=== PATIENT | female | born 2000 | race Caucasian/White ===

== ENCOUNTER 2020-07-31 02:30 | Observation (INO) | payer OTHER, SELFPAY ==
[~2020-07-31] VITALS: Ht 170.2 cm; Wt 105.7 kg
[2020-07-31 02:30] VITALS: BP 120/71
[2020-07-31] MEDS ORDERED: NACL 0.9% 1,000 ML IV SCH (02:40)
[2020-07-31] MEDS ORDERED: cefTRIAXone 1,000 MG in DEXT 5% MINI-BAG PLUS 50 ML IV ONE (02:40)
--- NOTE | 2020-07-31 02:55 | NUR ---
21 YO F CHACHA FROM HOME WITH C/C OF [facility]OPE. PT STATED SHE WENT TO THE AND SYNCOPED FOR A FEW MINS BEFORE FAMILY CAME IN. PT DENIES HITTING HEAD OR ANY INJURIES. PT STATED SHE TESTED POS FOR COVID ON 07/25. PT STATES SHE HAS HAD DIZZINESS, N/D, COUGH AND FEVER X3DAYS. STATED FEVER SUBSIDED ON 07/29. DENIES BLOOD IN STOOL. PT DENIED SOB, CHILLS, AND VOMITTING. PT PLACED IN GOWN, CLINICAL PROFESSOR AND PULSE OX. PT PLACED ON O2 FOR DESAT TO 90%. PT IS IN STABLE CONDITION. PT STATED SHE HAS BEEN TAKING IBUPROFEN, TYLENOL, AND MUSINEX WITH SOME RELIEF. HX: DENIES RX: DENIES NKA Addendum: 07/31/20 at 0344 by Zenter 1O YO F CHACHA FROM HOME WITH C/C OF [facility]NCOPE. PT STATED SHE WENT TO THE AND SYNCOPED FOR A FEW MINS BEFORE FAMILY CAME IN. PT DENIES HITTING HEAD OR ANY INJURIES. PT STATED SHE TESTED POS FOR COVID ON 07/25. PT STATES SHE HAS HAD DIZZINESS, N/D, COUGH AND FEVER X3DAYS. STATED FEVER SUBSIDED ON 07/29. DENIES BLOOD IN STOOL. PT DENIED SOB, CHILLS, AND VOMITTING. PT PLACED IN GOWN, CLINICAL PROFESSOR AND PULSE OX. PT PLACED ON O2 FOR DESAT TO 90%. PT IS IN STABLE CONDITION. PT STATED SHE HAS BEEN TAKING IBUPROFEN, TYLENOL, AND MUSINEX WITH SOME RELIEF. HX: DENIES RX: DENIES NKA
[2020-07-31] MEDS ORDERED: cefTRIAXone 1,000 MG VIAL ONE ×2 (02:56→11:56)
--- NOTE | 2020-07-31 03:00 | NUR ---
PROVIDED PT WITH A BEDSIDE COMMODE IN ORDER TO OBTAIN A URINE SPECIMEN COLLECTION
--- NOTE | 2020-07-31 03:08 | NUR ---
MAGDALENA MOSS AT BEDSIDE FOR MEDICAL EVALUATION
[2020-07-31 03:12] LABS: BASOPHILS % (AUTO) 0.4 % (0.0-2.0); EOSINOPHILS % (AUTO) 0.1 % (0.0-4.0); HEMATOCRIT 38.6 % (36-48); LYMPHOCYTES # (AUTO) 1.3 K/uL (2.5-16.5); LYMPHOCYTES % (AUTO) 28.9 % (20.5-51.1); MEAN CORPUSCULAR HEMOGLOBIN 29 pg (27-31); MEAN CORPUSCULAR HGB CONC 34 g/dL (33-37); MONOCYTES # (AUTO) 0.4 K/uL (0.8-1.0); MONOCYTES % (AUTO) 8.5 % (1.7-9.3); NEUTROPHILS # (AUTO) 2.9 K/uL (1.8-7.7); NEUTROPHILS % (AUTO) 62.1 % (42.2-75.2); PLATELET COUNT (AUTO) 176 K/uL (140-450); RED BLOOD CELL COUNT(AUTO) 4.55 MIL/uL (4.20-5.40); RED CELL DISTRIBUTION WIDTH 13.8 % (11.6-13.7); WHITE BLOOD COUNT (AUTO) 4.6 K/uL (4.5-11.0)
--- NOTE | 2020-07-31 03:12 | NUR ---
XRAY AT BEDSIDE
[2020-07-31] MEDS ORDERED: KETOROLAC 30 MG/ML VIAL IVP ONE (03:15)
--- NOTE | 2020-07-31 03:23 | NUR ---
COLLECTED COVID SWAB-NICHOL[facility] AND WALKED OVER TO LAB
[2020-07-31 03:29] LABS: ALBUMIN 4.2 g/dL (3.4-5.0); ANION GAP 12.7 (8-16); CARBON DIOXIDE 26.8 mmol/L (21-32); POTASSIUM 3.5 mmol/L (3.5-5.1); TOTAL BILIRUBIN 0.4 mg/dL (0.0-1.0)
--- NOTE | 2020-07-31 03:35 | NUR ---
URINE COLLECTED AND TAKEN TO LAB.
[2020-07-31 03:44] LABS: APPEARANCE,URINE SL CLOUDY (CLEAR); BILIRUBIN,URINE 1+ (NEGATIVE); BLOOD, URINE NEGATIVE (NEGATIVE); COLOR,URINE YELLOW (YELLOW); LEUKOCYTE ESTERASE ,URINE NEGATIVE (NEGATIVE); NITRITE, URINE NEGATIVE (NEGATIVE); UGLUCOSE NEGATIVE (NEGATIVE)
--- NOTE | 2020-07-31 03:52 | NUR ---
LAB CALLED WITH POSITIVE COVID TEST RESULT
--- NOTE | 2020-07-31 03:55 | NUR ---
PT'S MOTHER CALLED FOR AN UPDATE. PT STATED IT WAS OK TO RELEASE INFO TO HER MOTHER. ASKED FOR UPDATES THROUGHOUT STAY. KRYSTAL [phone]
[2020-07-31 04:10] LABS: RBC,URINE 0-5 /HPF (0-5)
[2020-07-31 04:12] LABS: COARSE GRANULAR CASTS,URINE 0-10 /LPF (None Seen)
--- NOTE | 2020-07-31 04:19 | NUR ---
PT IS IN STABLE CONDITION, RESTING. EQUAL RISE AND FALL OF CHEST WALL, UNLABORED BREATHING. 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 PT NEEDS MET AT THIS TIME.
--- NOTE | 2020-07-31 06:05 | NUR ---
PT IS SLEEPING. IN STABLE CONDITION, UNLABORED BREATHING, AND EQUAL RISE AND FALL OF CHEST WALL. BED LOCKED IN LOWEST POSITION. SIDE RAILS X2. PT. TAKEN OFF O2, SATING AT 96% R.A.
--- NOTE | 2020-07-31 07:12 | NUR ---
REPORT GIVEN TO TRUDI FERRO. TRANSFER OF CARE AT THIS TIME.
--- NOTE | 2020-07-31 09:37 | NUR ---
RPatient appears to be resting comfortably in bed. Vital Signs within normal limits. Respirations even and unlabored.
[2020-07-31] MEDS: AZITHROMYCIN 500 MG in DEXTROSE 5% 250 ML IV SCH (11:40)
[2020-07-31] MEDS ORDERED: ACETAMINOPHEN 325 MG TAB PO PRN (11:40)
[2020-07-31] MEDS ORDERED: MORPHINE SULFATE 4 MG/ML SYR IVP PRN (11:40)
[2020-07-31] MEDS: NACL 0.9% 1,000 ML IV SCH (12:09)
[2020-07-31] MEDS: HYDROcodone/APAP 5/325 MG 1 TAB TAB PO PRN (12:10)
--- NOTE | 2020-07-31 12:10 | NUR ---
PATIENT C/O HEADACHE, 7/10 DULL PULSING PAIN.
[2020-07-31] MEDS ORDERED: AZITHROMYCIN 500 MG INJ VIAL IV ONE (12:50)
[2020-07-31] MEDS: ONDANSETRON 4 MG/2 ML VIAL IVP PRN (14:08)
--- NOTE | 2020-07-31 14:08 | NUR ---
PATIENT BEGAN FEELING NAUSEATED, WANTED TO VOMIT. ZOFRAN PRN GIVEN
--- NOTE | 2020-07-31 14:28 | NUR ---
[facility] [phone]
--- NOTE | 2020-07-31 15:20 | NUR ---
Patient appears to be resting comfortably in bed. Vital Signs within normal limits. Respirations even and unlabored.
[2020-07-31 16:50] VITALS: BP 125/78
--- NOTE | 2020-07-31 16:50 | NUR ---
RECEIVED PHONE REPORT FROM NURSE FERRO PRIOR TO PATIENTS ARRIVAL. ASSISTED PT INTO BED. PT RESTING IN BED. ABLE TO MAKE NEEDS KNOWN. RESPIRATIONS EVEN AND UNLABORED WITH NO SOB OR RESPIRATORY DISTRESS. SKIN WARM AND DRY TO TOUCH. EDUCATED PT ON HOSPITAL POLICIES. PT VERBALIZED UNDERSTANDING. SAFETY MEASURES IN PLACE. WILL CONTINUE TO MONITOR
--- NOTE | 2020-07-31 17:15 | NUR ---
Patient will be admitted to care of [facility]. Admited to TELE. Will go to room 113. Belongings list completed. Report to CHIKA BRUSH.
--- NOTE | 2020-07-31 18:15 | NUR ---
PT RESTING IN BED. ABLE TO MAKE NEEDS KNOWN. NO SIGNS OF DISTRESS. WILL CONTINUE TO MONITOR
--- NOTE | 2020-07-31 19:15 | NUR ---
ENDORSED TO NIGHTSHIFT FOR CONTINUITY OF CARE. PT IS STABLE
--- NOTE | 2020-07-31 19:20 | NUR ---
RECEIVED PT IN STABLE CONDITION FROM AM NURSE. AWAKE,ALERT AND ORIENTED X4. ON TELE MONITOR. WITH NO S/S OF ANY SOB NOR ANY DISCOMFORT NOTED. HAS IVF INFUSING WELL ON THE RT AC G#20. CLEAR AND PATENT. PLAN OF CARE DISCUSSED AND VERBALIZED UNDERSTANDING. FREQ ROUNDS NEEDED. BED ON LOW POSITION, SIDE RAILS UP X2. CALL LIGHT PLACED WITHIN EASY REACH. WILL CONTINUE TO MONITOR.
[2020-07-31 20:00] VITALS: BP 130/82
--- NOTE | 2020-07-31 21:00 | NUR ---
MADE ROUNDS. PT IS AWAKE, NO SOB NOTED. INSTRUCTED TO CALL FOR ANY ASSISTANCE WHEN GETTING UP . VERBALIZED UNDERSTANDING.
--- NOTE | 2020-07-31 23:00 | NUR ---
MADE ROUNDS. PT IS ASLEEP. NO SOB NOR ANY DISCOMFORT NOTED. WILL CONTINUE TO MONITOR.
[2020-08-01] VITALS: BP 120/76
[2020-08-01] MEDS: NACL 0.9% 1,000 ML IV SCH ×2 (00:10→04:32)
--- NOTE | 2020-08-01 01:00 | NUR ---
CHECKED ON PT. ASLEEP. NO SOB NOTED.
[2020-08-01] MEDS: HYDROcodone/APAP 5/325 MG 1 TAB TAB PO PRN (03:38)
--- NOTE | 2020-08-01 03:38 | NUR ---
PT GOT UP TO THE BATHROOM AND VOIDED. THEN AFTER THIS PT C/O HEADACHE . MEDICATED ORDERED. WILL CONTINUE TO MONITOR.
[2020-08-01 04:00] VITALS: BP 145/91
[2020-08-01] MEDS: ONDANSETRON 4 MG/2 ML VIAL IVP PRN (04:33)
--- NOTE | 2020-08-01 04:33 | NUR ---
C/O NAUSEA . ZOFRAN IVP 4MG GIVNE ORDERED. WILL CONTINUE TO MONITOR.
--- NOTE | 2020-08-01 05:30 | NUR ---
PT ASLEEP. NO S/S OF ANY DISCOMFORT/PAIN NOTED.
[2020-08-01 07:37] LABS: BASOPHILS % (AUTO) 0.4 % (0.0-2.0); EOSINOPHILS % (AUTO) 0.3 % (0.0-4.0); HEMATOCRIT 36.3 % (36-48); HEMOGLOBIN 12.2 g/dL (12.0-16.0); LYMPHOCYTES # (AUTO) 1.1 K/uL (2.5-16.5); LYMPHOCYTES % (AUTO) 22.8 % (20.5-51.1); MEAN CORPUSCULAR HEMOGLOBIN 29 pg (27-31); MEAN CORPUSCULAR HGB CONC 34 g/dL (33-37); MEAN CORPUSCULAR VOLUME 84.9 fL (80-94); MONOCYTES # (AUTO) 0.4 K/uL (0.8-1.0); MONOCYTES % (AUTO) 8.7 % (1.7-9.3); NEUTROPHILS # (AUTO) 3.1 K/uL (1.8-7.7); NEUTROPHILS % (AUTO) 67.8 % (42.2-75.2); PLATELET COUNT (AUTO) 167 K/uL (140-450); RED BLOOD CELL COUNT(AUTO) 4.28 MIL/uL (4.20-5.40); RED CELL DISTRIBUTION WIDTH 13.8 % (11.6-13.7); WHITE BLOOD COUNT (AUTO) 4.6 K/uL (4.5-11.0)
--- NOTE | 2020-08-01 07:38 | NUR ---
ENDORSED PT IN STABLE CONDITION TO AM NURSE.
--- NOTE | 2020-08-01 07:40 | NUR ---
REC'D BEDSIDE ENDORSEMENT FROM NIGHTSHIFT NURSE. PATIENT IS RESTING AND STABLE. SAFETY MEASURES IN PLACE. WILL CONT TO MONITOR.
[2020-08-01 08:00] VITALS: BP 127/92
--- NOTE | 2020-08-01 08:54 | NUR ---
PATIENT HAS BEEN SCREENED AND CATEGORIZED MODERATE NUTRITION RISK. PATIENT WILL BE SEEN WITHIN 3-5 DAYS OF ADMISSION. 08/02/20 08/04/[address]
[2020-08-01 09:23] LABS: ALBUMIN 3.9 g/dL (3.4-5.0); ANION GAP 12.7 (8-16); CARBON DIOXIDE 25.8 mmol/L (21-32); CREATININE 0.7 mg/dL (0.6-1.3); MAGNESIUM 1.7 mg/dL (1.8-2.4); POTASSIUM 3.5 mmol/L (3.5-5.1); TOTAL BILIRUBIN 0.4 mg/dL (0.0-1.0)
--- NOTE | 2020-08-01 11:27 | NUR ---
SOCIAL WORK NOTE: Patient's Orientation Person Situation Place Time Information Provided By PATIENT Comments SW WAS UNABLE TO MEET PATIENT AT BEDSIDE. SW CONTACTED PATIENT TELEPHONICALLY AND COMPLETED ASSESSMENT. Commercial Lease Administrator, Realtionship and Phone Number November [phone] Healthcare Power of Maintenance Mechanic [employer] No Does Patient Have a POLST No Identifying Problems No Social Work Triggers Is A Social Work Consult Needed No Mandate Report Filed No Explanation Of Identifying Problems PATIENT IS A 19-YEAR-OLD FEMALE ADMITTED FOR COVID 19. PATIENT HAS NO SIGNIFICANT PMHX. PATIENT REPORTED NO HISTORY OF MENTAL HEALTH OR SUBSTANCE ABUSE. Admitted From Home Pre-Admission Level Of Functioning Status Independent/Ambulatory Prior Resources/Services Used In Last 12 Months No Prior Resources Used Prior DME No Prior DME Used Dialysis Comments N/A Living Situation Apartment Other Living Situation/Comment PATIENT REPORTED LIVING WITH PARENTS. Patient Had Caregiver No Home Support No Caregiver Issues Financial Issues No Known Financial Issue Referral To The Financial Counselor Needed No Factors/Needs No D/C Needs Identified Pt/Rep Participated In Discharge Plan Yes Patient/Family Agress With Discharge Plan Yes Discharge Plan Comments TENTATIVE DISCHARGE PLAN IS FOR PATIENT TO RETURN HOME. DC Plan Status Initiated
--- NOTE | 2020-08-01 11:27 | NUR ---
PT COMPLAINED OF BODY ACHES AND HAD LOW GRADE FEVER OF 99.3. PRN TYLENOL ADMINISTERED PRESCRIBED PER MD ORDER. PT TOLERATED WELL. MEDICATION EDUCATION PERFORMED. SAFETY MEASURES IN PLACE. WILL CONTINUE TO MONITOR
[2020-08-01] MEDS: AZITHROMYCIN 500 MG in DEXTROSE 5% 250 ML IV SCH (11:40)
[2020-08-01 12:00] VITALS: BP 130/93
--- NOTE | 2020-08-01 12:30 | NUR ---
PT RESTING IN BED. ABLE TO MAKE NEEDS KNOWN. RESPIRATIONS EVEN AND UNLABORED WITH NO SOB OR RESPIRATORY DISTRESS. SAFETY MEASURES IN PLACE. WILL CONTINUE TO MONITOR
--- NOTE | 2020-08-01 13:30 | NUR ---
ADMINISTERED SCHED MED PRESCRIBED PER MD ORDER. PT TOLERATED WELL. MEDICATION EDUCATION PERFORMED. PT VERBALIZED UNDERSTANDING. SAFETY MEASURES IN PLACE. WILL CONTINUE TO MONITOR
[2020-08-01] MEDS ORDERED: DEC4 PO (14:55)
[2020-08-01] MEDS ORDERED: ALBU117P INH (14:55)
[2020-08-01] MEDS ORDERED: AZIT250T3 PO (14:57)
--- NOTE | 2020-08-01 15:05 | NUR ---
PT IS AWARE OF DISCHARGE AND WOULD LIKE TO GO HOME BEFORE 1700. WILL CONTINUE TO MONITOR
[2020-08-01 16:00] VITALS: BP 133/63
--- NOTE | 2020-08-01 16:50 | NUR ---
WENT OVER DISCHARGE INSTRUCTIONS WITH PATIENT. PT COVID POSITIVE AND UNABLE TO SIGN APPROPRIATE DOCUMENTS. EDUCATED PT TO VISIT ED FOR ANY SIGNS OF DISTRESS. GAVE PT CDC GUIDELINES ON COVID PROTOCOL WITH MAINTAINING QUARANTINE WELL KEEPING OTHERS SAFE, AND A PROPER DIET. PT VERBALIZED UNDERSTANDING. REMOVED INTACT IV CANNULAS. PT TOLERATED WELL. REMOVED ID BAND. PT GATHERED ALL OF HER BELONGINGS AND CHANGED INTO HER OWN CLOTHES. PT LEFT WITH MASK WELL HER RIDE HAD A MASK. PT IS STABLE
[2020-08-02] MEDS ORDERED: cefTRIAXone 1,000 MG in DEXT 5% MINI-BAG PLUS 50 ML IV SCH (09:00)
[2020-08-02] MEDS ORDERED: AZITHROMYCIN 500 MG in DEXTROSE 5% 250 ML IV SCH (10:00)
--- NOTE | 2020-08-09 14:38 | NUR ---
Ignacio franklin in EDM - 08/13/20 at 1323 by SHIRA late entry -- normal saline end time is 07/31/20 [id number]
--- NOTE | 2020-08-30 18:50 | NUR ---
LATE ENTRY -- ROCEPHIN COMPLETED AT 1234 AND AZITHROMYCIN COMPLETED AT 1404 07/31
== END 2020-08-01 16:45 | disposition home or self-care (01) ==
LOC: MED 02:30 → MTU 11:47
PROVIDERS: ADMIT Hospitalist; ATTEND Hospitalist
DX: U07.1 COVID-19 (principal); J18.8 Other pneumonia, unspecified organism; R55 Syncope and collapse; E87.6 Hypokalemia; N39.0 Urinary tract infection, site not specified; R74.01 Elevation of levels of liver transaminase levels
CPT/HCPCS: 36415; 71045; 80053; 81001; 83605; 83735; 83880; 84484; 85025; 87040; 87081; 87086; 87426; 93005; 96361; 96365; 96366; 96367; 96375; 96376; 99285; G0378; J0456; J0696; J1885; J2405; J7060